=== PATIENT | female | born 1960 | race Hispanic/Latino ===

== ENCOUNTER → 2018-08-15 | Outpatient (CLI) | payer OTHER | END | disposition home or self-care (01) | LOC: OIH 13:09 | PROVIDERS: ATTEND Family Medicine | DX: M79.89 Other specified soft tissue disorders (principal); M79.642 Pain in left hand; M25.532 Pain in left wrist; W19.XXXA Unspecified fall, initial encounter; Y93.89 Activity, other specified; Y92.89 Other specified places as the place of occurrence of the external cause; Y99.8 Other external cause status | CPT/HCPCS: 73110; 73130 ==

== ENCOUNTER → 2020-05-07 | Outpatient (CLI) | payer OTHER | END | disposition home or self-care (01) | LOC: OIH 09:51 | PROVIDERS: ATTEND Family Medicine | DX: Z01.818 Encounter for other preprocedural examination (principal) | CPT/HCPCS: 71046 ==

== ENCOUNTER → 2023-02-24 | Outpatient (CLI) | payer OTHER | END | disposition home or self-care (01) | LOC: RAH 12:40 | PROVIDERS: ATTEND Family Medicine | DX: R92.1 Mammographic calcification found on diagnostic imaging of breast (principal); R92.8 Other abnormal and inconclusive findings on diagnostic imaging of breast | CPT/HCPCS: 76641; 77065 ==

== ENCOUNTER → 2023-08-23 | Outpatient (CLI) | payer OTHER ==
[2023-08-23 10:38] LABS: BASOPHILS # (AUTO) 0.02 K/uL (0.00-0.20); BASOPHILS % (AUTO) 0.2 % (0.0-5.0); EOSINOPHILS # (AUTO) 0.24 K/uL (0.00-0.70); EOSINOPHILS % (AUTO) 2.9 % (0.0-8.0); HEMATOCRIT 41.8 % (36-48); IMMATURE GRANULOCYTE ABSOLUTE 0.03 K/uL (0-1); LYMPHOCYTES # (AUTO) 2.7 K/uL (1.0-4.8); LYMPHOCYTES % (AUTO) 32.1 % (21.0-51.0); MEAN CORPUSCULAR HEMOGLOBIN 31.3 pg (27.0-33.0); MEAN CORPUSCULAR HGB CONC 32.3 g/dL (32.0-36.0); MEAN CORPUSCULAR VOLUME 96.8 fL (79-99); MONOCYTES # (AUTO) 0.7 K/uL (0.1-1.0); MONOCYTES % (AUTO) 8.1 % (3.0-13.0); NEUTROPHILS # (AUTO) 4.7 K/uL (1.8-7.7); NEUTROPHILS % (AUTO) 56.3 % (40.0-77.0); PLATELET COUNT (AUTO) 261 K/uL (130-400); RED BLOOD CELL COUNT(AUTO) 4.32 MIL/uL (4.00-5.50); RED CELL DISTRIBUTION WIDTH 12.6 % (11.0-15.5); WHITE BLOOD COUNT (AUTO) 8.3 K/uL (4.8-10.8)
[2023-08-23 11:51] LABS: ERYTHROCYTE SEDIMENTATION RATE 20 MM/HR (0-30)
== END | disposition home or self-care (01) ==
LOC: LAB 09:53
PROVIDERS: ATTEND Student in an Organized Health Care Education/Training Program
DX: M25.462 Effusion, left knee (principal)
CPT/HCPCS: 36415; 85025; 85651; 86140

== ENCOUNTER 2023-12-30 05:57 | Day surgery (SDC) | payer OTHER ==
[2023-12-28 11:26] LABS: BASOPHILS # (AUTO) 0.04 K/uL (0.00-0.20); BASOPHILS % (AUTO) 0.5 % (0.0-5.0); EOSINOPHILS # (AUTO) 0.26 K/uL (0.00-0.70); HEMATOCRIT 42.8 % (36-48); IMMATURE GRANULOCYTE ABSOLUTE 0.03 K/uL (0-1); LYMPHOCYTES # (AUTO) 2.3 K/uL (1.0-4.8); LYMPHOCYTES % (AUTO) 26.6 % (21.0-51.0); MEAN CORPUSCULAR HEMOGLOBIN 31.4 pg (27.0-33.0); MEAN CORPUSCULAR HGB CONC 33.6 g/dL (32.0-36.0); MEAN CORPUSCULAR VOLUME 93.4 fL (79-99); MONOCYTES # (AUTO) 0.7 K/uL (0.1-1.0); MONOCYTES % (AUTO) 7.6 % (3.0-13.0); NEUTROPHILS # (AUTO) 5.4 K/uL (1.8-7.7); PLATELET COUNT (AUTO) 308 K/uL (130-400); RED BLOOD CELL COUNT(AUTO) 4.58 MIL/uL (4.00-5.50); RED CELL DISTRIBUTION WIDTH 12.3 % (11.0-15.5); WHITE BLOOD COUNT (AUTO) 8.7 K/uL (4.8-10.8)
[2023-12-28 11:30] VITALS: BP 136/80; PULSE 78; RESP 16
[2023-12-28 11:57] LABS: CREATININE 0.8 mg/dL (0.5-1.0); POTASSIUM 4.8 mmol/L (3.5-5.1)
[~2023-12-30] VITALS: Ht 154.9 cm; Wt 73.7 kg
[2023-12-30] VITALS (13 sets, daily range): BP systolic 98–132; BP diastolic 47–80; PULSE 65–74; RESP 14–18
[~2023-12-30 05:57] MED LIST: IBUP-2077 PO; LEVO100T12 PO; LOSA50TA64 PO; METF-444 PO; SEMA0.5P SQ
[2023-12-30] MEDS ORDERED: FAMOTIDINE 20MG VIAL IV ONE (06:41)
[2023-12-30] MEDS ORDERED: acetaMINOPHEN 1,000 MG/100 ML VIAL IV ONE (06:41)
[2023-12-30] MEDS: 0.9%NACL 1000ML 1,000 ML IV ONE (06:45)
[2023-12-30] MEDS: ceFAZolin SODIUM 2 GM VIAL ONE (06:45)
[2023-12-30] MEDS ORDERED: KETAMINE 50MG/ML SYRINGE 50 MG/ML DISP.SYRIN ONE (06:46)
[2023-12-30] MEDS ORDERED: LIDOCAINE PF 100MG/5ML (2%) SYRINGE 5ML ONE (06:51)
[2023-12-30] MEDS ORDERED: ROCURONIUM BROMIDE 10MG/1ML 5ML VL ONE (06:51)
[2023-12-30] MEDS ORDERED: PROPOFOL 10 MG/ML 20ML VIAL IV ONE (06:51)
[2023-12-30] MEDS ORDERED: FENTANYL CITRATE PF 50 MCG/1 ML 2ML VIAL ONE (06:51)
[2023-12-30] MEDS ORDERED: DEXAMETHASONE SOD PHOSPHATE 10MG/ML 1ML VIAL ONE (07:24)
[2023-12-30] MEDS ORDERED: ONDANSETRON 4MG INJ ONE (07:24)
[2023-12-30] MEDS: ROPivacaine 0.5% 5MG/ML 30ML ONE (08:30)
[2023-12-30] MEDS ORDERED: HYDR-4060 PO (09:14)
[2023-12-30] MEDS ORDERED: CYCL5TAB PO (09:14)
[2023-12-30] MEDS ORDERED: DOCU-116 PO (09:14)
[2023-12-30] MEDS: ONDANSETRON 4MG INJ ONE (09:34)
[2023-12-30] MEDS: MEPERIDINE-PF 25 MG/ML SYG ONE (09:35)
[2023-12-30] MEDS: MEPERIDINE-PF 25 MG/ML SYG IVP ONE (10:27)
== END 2023-12-30 10:45 | disposition home or self-care (01) ==
LOC: DAH 05:57
PROVIDERS: ATTEND Student in an Organized Health Care Education/Training Program
DX: T85.692A Other mechanical complication of permanent sutures, initial encounter (principal); G89.28 Other chronic postprocedural pain; M25.562 Pain in left knee; M70.52 Other bursitis of knee, left knee; I10 Essential (primary) hypertension; E11.9 Type 2 diabetes mellitus without complications; E03.9 Hypothyroidism, unspecified; Z90.710 Acquired absence of both cervix and uterus; Z96.652 Presence of left artificial knee joint; Z79.899 Other long term (current) drug therapy; Y83.8 Other surgical procedures as the cause of abnormal reaction of the patient, or of later complication, without mention of misadventure at the time of the procedure
CPT/HCPCS: 80048; 85025; 36415; 27372; 82948 ×2; A4663; J7120; A4606; J3490 ×3; J3010; J1100; J7030; J2001; J2704; J2405 ×2; J2175 ×2; J2795; J0690; A6219; G0168; A4649; A4930; A6255; A5120; A4215; A4223; A4222; A4221

== ENCOUNTER → 2024-02-28 | Outpatient (CLI) | payer OTHER ==
[~2024-02-28] MED LIST changes: +CYCL5TAB PO; +DOCU-116 PO; +HYDR-4060 PO; -IBUP-2077 PO
== END | disposition home or self-care (01) ==
LOC: RAH 14:08
PROVIDERS: ATTEND Family Medicine
DX: N60.01 Solitary cyst of right breast (principal); R92.8 Other abnormal and inconclusive findings on diagnostic imaging of breast; R92.30 Dense breasts, unspecified
CPT/HCPCS: 76641; 77066

== ENCOUNTER → 2024-07-17 | Outpatient (CLI) | payer OTHER ==
[~2024-07-17] MED LIST changes: -CYCL5TAB PO; +CYCL5TAB3 PO
--- NOTE | 2024-07-23 14:16 | HMCSR ---
APPROVED REPORT Laterality: Bilateral Indications R06.09, R60.9 VELOCITY AND DOPPLER WAVEFORM ANALYSIS WELDER PRODUCTION LINE ARC (R) 99.5cm/sec, Biphasic, WELDER PRODUCTION LINE ARC (L) 99.6cm/sec, Biphasic, Prof Fem Art. (R) 53.8cm/sec, Biphasic, Prof Fem Art. (L) 47.5cm/sec, Biphasic, Fem Art Prox. (R) 84.8cm/sec, Biphasic, Fem Art Prox. (L) 85.7cm/sec, Biphasic, Fem Art Mid. (R) 71.0cm/sec, Biphasic, Fem Art Mid. (L) 91.5cm/sec, Biphasic, Fem Art Dist (R) 53.0cm/sec, Biphasic, Fem Art Dist. (L) 47.3cm/sec, Biphasic, Pop Art(AK) (R) 62.0cm/sec, Biphasic, Pop Art (AK) (L) 45.6cm/sec, Biphasic, Pop Art (Fossa)(R) 54.6cm/sec, Biphasic, Pop Art (Fossa) (L) 51.8cm/sec, Biphasic, Pop Art(BK) (R) 55.5cm/sec, Biphasic, Pop Art (BK) (L) 59.4cm/sec, Biphasic, LCAC RADAR OPERATOR/NAVIGATOR Prox. (R) 63.7cm/sec, Biphasic, LCAC RADAR OPERATOR/NAVIGATOR Prox. (L) 64.8cm/sec, Biphasic, LCAC RADAR OPERATOR/NAVIGATOR Mid. (R) 66.0cm/sec, Biphasic, LCAC RADAR OPERATOR/NAVIGATOR Mid. (L) 83.4cm/sec, Biphasic, LCAC RADAR OPERATOR/NAVIGATOR Dist. (R) 45.7cm/sec, Biphasic, LCAC RADAR OPERATOR/NAVIGATOR Dist. (L) 56.6cm/sec, Biphasic, Per Art Prox. (R) 47.5cm/sec, Biphasic, Per Art Prox. (L) 41.7cm/sec, Biphasic, Per Art Mid. (R) 49.8cm/sec, Biphasic, Per Art Mid. (L) 44.0cm/sec, Biphasic, Per Art Dist. (R) 44.0cm/sec, Biphasic, Per Art Dist. (L) 38.3cm/sec, Biphasic, GLORIA Prox. (R) 41.7cm/sec, Biphasic, LGORIA Prox. (L) 58.7cm/sec, Biphasic, GLORIA Mid. (R) 50.9cm/sec, Biphasic GLORIA Mid. (L) 51.4cm/sec, Biphasic, GLORIA Dist. (R) 67.1cm/sec, Biphasic, GLORIA Dist. (L) 44.0cm/sec, Biphasic, Technologist Impression No evidence of significant arterial insufficiency of bilateral lower extremities. Mutiphasic waveforms seen in bilateral lower extremities. Conclusion No evidence of significant arterial insufficiency of bilateral lower extremities. Conclusion No evidence of significant arterial insufficiency of bilateral lower extremities.
--- NOTE | 2024-07-23 14:18 | HMCSR ---
APPROVED REPORT Bilateral Lower Extremity Venous Study for DVT., Venous Competence. Indications R06.09, R60.9 Vein Imaging CFV (R): Normal flow, augmentation and compression. No evidence of DVT. 10.1mm 772ms of reflux. SFJ (R): Normal flow, augmentation and compression. No evidence of DVT. FEM (R): Normal flow, augmentation and compression. No evidence of DVT. POP (R): Normal flow, augmentation and compression. No evidence of DVT. DFV (R): Normal flow, augmentation and compression. No evidence of DVT. PTV (R): Normal flow, augmentation and compression. No evidence of DVT. Peroneals (R): Normal flow, augmentation and compression. No evidence of DVT. CFV (L): Normal flow, augmentation and compression. No evidence of DVT. 10.5mm 1178ms of reflux. SFJ (L): Normal flow, augmentation and compression. No evidence of DVT. FEM (L): Normal flow, augmentation and compression. No evidence of DVT. POP (L): Normal flow, augmentation and compression. No evidence of DVT. DFV (L): Normal flow, augmentation and compression. No evidence of DVT. PTV (L): Normal flow, augmentation and compression. No evidence of DVT. Peroneals (L): Normal flow, augmentation and compression. No evidence of DVT. Technologist Impression Deep veins of bilateral lower extremities appear patent and compressible without thrombus. Deep vein reflux seen in LCFV Superficial venous insufficiency in RGSV and LGSV RGSV Junction 8.0mm 3800ms thigh 2.5mm 0.0ms knee 2.5mm 0.0ms calf 1.6mm 0.0ms RSSV Prox 1.8mm 0.0ms Mid 1.8mm 0.0ms LGSV junction 6.8mm 2333ms thigh 3.0mm 0.0ms knee 2.2mm 0.0ms calf 1.1mm 0.0ms LSSV Prox 1.7mm 0.0ms Mid 2.1mm 0.0ms Conclusion Severe superficial venous reflux of bilateral greater saphenous veins Severe deep venous reflux greater than a 1000 milliseconds of left common femoral vein Consider formal venography with intravascular ultrasound if clinically indicated Conclusion Severe superficial venous reflux of bilateral greater saphenous veins Severe deep venous reflux greater than a 1000 milliseconds of left common femoral vein Consider formal venography with intravascular ultrasound if clinically indicated
--- NOTE | 2024-07-23 14:19 | HMCSR ---
APPROVED REPORT EXAM: Two-dimensional and M-mode echocardiogram with Doppler and color Doppler. INDICATION ICD: R06.09 Other forms of dyspnea 2D Dimensions RVDd3.5 cmLVEF(%)69.6 (>50%)LVED Vol(simp.)89.0 mL IVSd1.1 (0.7-1.1cm)FS(%)39 %LVES Vol(simp.)40.0 mL LVDd3.8 (3.8-5.6cm)Ao Root(2D)2.9 (2.0-3.7cm)LVEF(%, simp.)55 % PWd1.0 (0.7-1.1cm)LVOT diam2.1 (1.8-2.4cm)LA ESV INDEX (BP)30.00 mL/m2 LVDs2.4 (2.5-4.0cm)IVC diam1.8 cm Aortic Valve AoV Vmax1.3 m/[place] GR6.5 mmHgLVOT Vmax1.1 m/s AoV VTI0.3 mAo Mean GR3.4 mmHgLVOT VTI0.26 m NOÉ (VMAX)3.2 cm2AVA (VTI) 3.2 cm2 Mitral Valve MV E Vmax61.7 cm/sDECEL Vfxr757 ms MV A Vmax80.2 cm/sP 1/2 T75 ms E/A ratio0.8MVA (PHT)2.9 cm2 MR Max PG55 mmHg TDI E/E' Zlbwdd41.6E/E' Khthkmv97.4 Pulmonary Valve PV Vmax1.1 m/sPV VTI0.24 mPV Mean GR2 mmHg PV Peak GR4.7 mmHgPI End [place] 1.0 cm/s Tricuspid Valve TR Vmax2.2 m/sRAP (EST) 8 [id number] mmHg TR Peak GR19.7 mmHg Left Ventricle The left ventricle structure and function is normal. There is normal LV segmental wall motion. There is borderline concentric left ventricular hypertrophy. LVEF is 55-60%. Grade 1 diastolic dysfunction Right Ventricle The right ventricle is normal size. The right ventricular systolic function is normal. Atria The left atrium size is normal. The right atrium size is normal. Aortic Valve Aortic valve is trileaflet. Aortic valve leaflets are sclerotic but open well. Trace aortic regurgita tion. There is no aortic valvular stenosis. Mitral Valve The mitral valve is mildly thickened. Mitral regurgitation is trace. There is no mitral valve stenosi s. Tricuspid Valve The tricuspid valve leaflets appear normal. There is trace to mild tricuspid regurgitation. Pulmonic Valve The pulmonic valve leaflets are thin and pliable; valve motion is normal. There is trace pulmonic ross vular regurgitation. Great Vessels The aortic root is normal in size. IVC is dilated and collapses >50% with inspiration. Pericardium No pericardial effusion. Conclusion LVEF is 55-60%. Grade 1 diastolic dysfunction There is normal LV segmental wall motion. Aortic valve is trileaflet. Aortic valve leaflets are sclerotic but open well. The aortic root is normal in size. No pericardial effusion.
== END | disposition home or self-care (01) ==
LOC: SHCH 09:16
PROVIDERS: ATTEND Internal Medicine Cardiovascular Disease
DX: I08.3 Combined rheumatic disorders of mitral, aortic and tricuspid valves (principal); I87.2 Venous insufficiency (chronic) (peripheral); I87.1 Compression of vein; R06.09 Other forms of dyspnea; R60.9 Edema, unspecified
CPT/HCPCS: 93306; 93925; 93970

== ENCOUNTER → 2025-03-13 | Outpatient (CLI) | payer OTHER ==
--- NOTE | 2025-03-13 15:40 | HMCIMG ---
Right BREAST ULTRASOUND: Clinical history follow-up for prior mammogram from 02/28/2024 Finding: Real-time examination of the [right/left] breast demonstrates heterogeneous echotexture throughout the breast without evidence of focal solid or masses. Right breast subareolar region at 6:00 there is a small tiny cyst measuring 0.3 x 0.1 x 0.2 cm. In the right axilla there is a benign-appearing intramammary lymph node measuring 1.6 x 0.6 x 1.6 cm. IMPRESSION: Right breast has a small cyst with no solid mass. With dense breasts. I would recommend annual mammography with tomography with bilateral breast sonogram. FINAL ASSESSMENT: ACR: BI-RAD- 2. Benign: Also a negative assessment; finding(s) benign abnormalities. Management: Routine mammography screening. Likelihood of Cancer: Essentially 0% likelihood of malignancy.
--- NOTE | 2025-03-13 15:41 | HMCIMG ---
DIGITAL both breasts DIAGNOSTIC MAMMOGRAM Technique: The digital mammographic examination of bilateral breasts in craniocaudal, mediolateral oblique views along with CAD was obtained. History: This is a 64 years year-old female 5, para4 Ab1 . Patient has no family history of breast cancer. Patient has no complaint Reference:Prior mammogram from 02/28/2024, 02/24/2023 and 02/14/2023 are available for comparison. Breast composition: Breast composition C: The breasts are heterogeneously dense, which may obscure small masses. Finding: The digital mammographic examination of both breasts in craniocaudal and mediolateral oblique view along with CAD demonstrates to be moderately heterogeneously nodular dense. There is focal asymmetry in the left breast upper outer quadrant with multiple coarse macro dystrophic calcification. This is unchanged from prior study. The sonographic examination of the right breast demonstrate there is a small cyst seen in the right subareolar region inferiorly.. There is no evidence of any dendritic mass, cluster microcalcification or architectural distortion. The retromammary fat appears to be normal. IMPRESSION: No radiographic evidence of malignant changes. NO RADIOGRAPHIC EVIDENCE OF MALIGNANT CHANGES. WE WOULD RECOMMEND ANNUAL FOLLOW UP WITH TOMOSYNTHESIS UNLESS OTHERWISE CLINICALLY INDICATED. FINAL ASSESSMENT: ACR: BI-RAD- 2. Benign: Also a negative assessment; finding(s) benign abnormalities. Management: Routine mammography screening. Likelihood of Cancer: Essentially 0% likelihood of malignancy. NOTE: IF A WORK-UP OF THIS PATIENT LEADS TO A BIOPSY, PLEASE FORWARD A COPY OF THE PATHOLOGY REPORT TO OUR OFFICE REQUIRED BY [facility] E[employer]ECT[employer] FEBRUARY 20, 1994. A NEGATIVE MAMMOGRAM SHOULD NOT PRECLUDE BIOPSY OF A CLINICALLY PALPABLE SUSPICIOUS MASS, 10% OF BREAST CANCERS ARE MAMMOGRAPHICALLY OCCULT. THIS MAMMOGRAPHY FACILITY IS FULLY ACCREDITED BY THE FOOD AND DRUG [employer]MIN[employer]RATION (FDA). THANK YOU FOR THIS REFERRAL.
== END | disposition home or self-care (01) ==
LOC: RAH 13:59
PROVIDERS: ATTEND Family Medicine
DX: N60.01 Solitary cyst of right breast (principal); R92.8 Other abnormal and inconclusive findings on diagnostic imaging of breast; R92.333 Mammographic heterogeneous density, bilateral breasts
CPT/HCPCS: 76641; 77066